=== PATIENT | female | born 1980 | race Caucasian/White ===

== ENCOUNTER 2021-05-17 06:53 | Day surgery (SDC) | payer OTHER ==
[2021-05-09 14:26] LABS: BASOPHILS % (AUTO) 0.2 % (0-1); EOSINOPHILS # (AUTO) 0.2 X10'3 (0-0.9); EOSINOPHILS % (AUTO) 1.5 % (0-6); LYMPHOCYTES # (AUTO) 3.6 X10'3 (1.1-4.8); LYMPHOCYTES % (AUTO) 25.7 % (21-51); MEAN CORPUSCULAR HEMOGLOBIN 29.5 PG (27.0-31.0); MEAN CORPUSCULAR HGB CONC 33.2 g/dL (33.0-36.5); MEAN CORPUSCULAR VOLUME 88.8 FL (78-98); MEAN PLATELET VOLUME 7.7 FL (7.4-10.4); MONOCYTES # (AUTO) 0.8 X10'3 (0-0.9); MONOCYTES % (AUTO) 5.6 % (2-12); NEUTROPHILS # (AUTO) 9.4 X10'3 (1.8-7.7); PRE OP HEMATOCRIT 42.7 % (35.0-45.0); PRE OP HEMOGLOBIN 14.2 g/dL (12.0-16.0); PRE OP PLATELET COUNT 335 X10'3 (140-440); RED BLOOD COUNT 4.81 X10'6 (4.20-5.60); RED CELL DISTRIBUTION WIDTH 14.5 % (11.5-14.5)
[2021-05-09 14:46] LABS: ALBUMIN 3.4 G/DL (3.4-5.0); ALBUMIN/GLOBULIN RATIO 0.9 (1.1-1.5); ALKALINE PHOSPHATASE 84 IU/L (46-116); BLOOD UREA NITROGEN 11 MG/DL (7-18); BUN/CREATININE RATIO 14.3 (6.6-38.0); CALCIUM 8.7 MG/DL (8.5-10.1); CHLORIDE 106 MMOL/L (99-107); CREATININE 0.77 MG/DL (0.40-0.90); PRE OP ALT 51 U/L (30-65); PRE OP ANION GAP 9 (8-16); PRE OP AST 12 U/L (10-37); PRE OP BILIRUB, TOTAL 0.2 MG/DL (0.0-1.0); PRE OP GLUCOSE 105 MG/DL (70-104); PRE OP POTASSIUM 3.9 MMOL/L (3.4-5.1); PRE OP SODIUM 140 MMOL/L (135-145); TOTAL PROTEIN 7.3 G/DL (6.4-8.2); eGFR 83 ML/MIN
[2021-05-09 15:30] LABS: HCG SERUM QL NEGATIVE
[~2021-05-17] VITALS: Ht 162.6 cm; Wt 102.0 kg
[~2021-05-17 06:53] MED LIST: CITA40TA11 PO; LEVO125T PO; METF-900 PO; OMEP-50 PO; albuterol 2.5 MG/3 ML nebule NEB ONE; cefazolin/dext.iso 2gm/100ml IV ONE; famotidine 20mg tablet PO ONE; ringers solution, lacted 1,000 ML IV SCH; vancomycin 1,500 MG in NS 300ml IV soln IV ONE
[2021-05-17] MEDS ORDERED: proCHLORperazine 10 MG/2 ml inj IV PRN (07:30)
[2021-05-17] MEDS ORDERED: morphine 2 MG/ML inj. syringe IV PRN (07:30)
[2021-05-17] MEDS ORDERED: ondansetron/PF 4mg/2ml inj IV PRN (07:30)
[2021-05-17] MEDS ORDERED: meperidine/PF 25mg/ml syringe IV PRN ×3 (07:30)
[2021-05-17] MEDS ORDERED: morphine 4 MG/ML inj SYRINge IV PRN (07:30)
[2021-05-17] MEDS ORDERED: ringers solution, lacted 1,000 ML IV SCH (07:30)
[2021-05-17 07:47] VITALS: BP 129/81
[2021-05-17] MEDS ORDERED: LIDOcaine 1% 30ml preserv. free vial ONE (08:56)
[2021-05-17] MEDS ORDERED: BUPIVAcaine/PF 2.5mg/ml (0.25%) 10ml vial ONE (09:01)
[2021-05-17] MEDS ORDERED: fentaNYL/PF 50MCG/1 ML 2ML syringe ONE (09:14)
[2021-05-17] MEDS ORDERED: MIDAZolam 1 MG/ML 5ML VIAL ONE (09:14)
[2021-05-17] MEDS ORDERED: ketorolac trometh. 30mg/ml inj. ONE (09:21)
[2021-05-17] MEDS ORDERED: methylPREDNISolone sod succ 125mg/2ml vial ONE (09:35)
[2021-05-17 09:51] VITALS: BP 116/65
--- NOTE | 2021-05-17 09:51 | NUR ---
Received from OR via [facility] , accompanied by Anesthesiologist TANO and report given by Anesthesiolgist. PATIENT WITH 20G PIV IN LEFT UE RUNNING LRA T100. DENIES PAIN. + CAP REFILL AND MOVEMENT TO RIGHT HAND. BIAS DRESSING THAT IS CDI TO RIGHT UE . ICE DONNED UPON ARRIVAL DENIES PAIN Addendum: 05/17/21 at 1002 by Arya Fink RN, RN Amended: Links added.
[2021-05-17 10:00] VITALS: BP 115/64
[2021-05-17 10:10] VITALS: BP 119/76
[2021-05-17 10:20] VITALS: BP 114/71
== END 2021-05-17 10:31 | disposition home or self-care (01) ==
LOC: PAS 06:53
PROVIDERS: ATTEND Orthopaedic Surgery
DX: G56.01 Carpal tunnel syndrome, right upper limb (principal); G56.21 Lesion of ulnar nerve, right upper limb; F32.9 Major depressive disorder, single episode, unspecified; K21.9 Gastro-esophageal reflux disease without esophagitis; E03.9 Hypothyroidism, unspecified; E11.59 Type 2 diabetes mellitus with other circulatory complications; F17.210 Nicotine dependence, cigarettes, uncomplicated; G47.30 Sleep apnea, unspecified; E66.01 Morbid (severe) obesity due to excess calories; Z68.38 Body mass index [BMI] 38.0-38.9, adult; Z79.84 Long term (current) use of oral hypoglycemic drugs; Z79.899 Other long term (current) drug therapy
CPT/HCPCS: 36415; 64719; 64721; 80053; 82948; 84703; 85025; 94640; 94664; 94760; J1885; J2001; J2250; J2930; J3010; J3370; J3490; J7040; A4215; A4618; A6455; A7000; J7120